=== PATIENT | male | born 1980 | race Caucasian/White ===

== ENCOUNTER 2021-07-06 14:53 | Emergency (ER) | payer OTHER ==
[2021-07-06 15:13] VITALS: BP 147/97; TEMP 98.7
[2021-07-06 15:23] VITALS: RESP 18
[2021-07-06] MEDS ORDERED: ONDANSETRON 4 MG/2 ML VIAL IVP STA (15:41)
[2021-07-06] MEDS ORDERED: SODIUM CHLORIDE 0.9% 50 ML IVPB ONE (16:00)
--- NOTE | 2021-07-06 16:07 | ED ---
General Adult HPI - General Chief complaint: Nausea/Vomiting/Diarrhea Stated complaint: Covid+, nausea Time Seen by Provider: 07/06/21 15:33 Source: patient, RN notes reviewed Mode of arrival: ambulatory Limitations: no limitations - History of Present Illness Initial comments: Patient is a 41-year-old male that presents to emergency department complaining of nausea. He notes he tested positive for Covid on Wednesday symptoms began on . She noted that he had questionable monoclonal antibody and wanted to undergo the IV infusion. He was otherwise a healthy well-appearing 41-year-old male in no apparent distress or pain. He denied any chest pain shortness of breath headache nausea vomiting diarrhea constipation fever fatigue chills. - Related Data Allergies Allergy/AdvReac Type Severity Reaction Status Date / Time No Known Allergies Allergy Verified 07/06/21 15:07 Review of Systems ROS Statement: Those systems with pertinent positive or pertinent negative responses have been documented in the HPI. ROS Other: All systems not noted in ROS Statement are negative. Past Medical History Past Medical History: No Reported History History of Any Multi-Drug Resistant Organisms: None Reported Past Surgical History: Cholecystectomy Past Psychological History: Anxiety Smoking Status: Never smoker Past Alcohol Use History: None Reported Past Drug Use History: Marijuana General Exam Limitations: no limitations General appearance: alert, in no apparent distress, obese Head exam: Present: atraumatic, normocephalic, normal inspection Eye exam: Present: normal appearance, PERRL, EOMI. Absent: scleral icterus, conjunctival injection, periorbital swelling ENT exam: Present: normal exam, mucous membranes moist Neck exam: Present: normal inspection Respiratory exam: Present: normal lung sounds bilaterally. Absent: respiratory distress, wheezes, rales, rhonchi, stridor Cardiovascular Exam: Present: regular rate, normal rhythm, normal heart sounds. Absent: systolic murmur, diastolic murmur, rubs, gallop, clicks Extremities exam: Present: normal inspection, full ROM, normal capillary refill. Absent: tenderness, pedal edema, joint swelling, calf tenderness Neurological exam: Present: alert, oriented X3 Psychiatric exam: Present: normal affect, normal mood Skin exam: Present: warm, dry, intact, normal color. Absent: rash Course Vital Signs 07/06/21 07/06/21 07/06/21 15:07 15:19 16:35 Temperature 98.7 F Pulse Rate 93 76 Respiratory 20 18 18 Rate Blood Pressure 147/97 O2 Sat by Pulse 96 97 Oximetry Medical Decision Making - Medical Decision Making 41-year-old male Covid-positive on Wednesday requesting monoclonal antibodies. Covid test, chest x-ray, monoclonal antibodies ordered. Covid positive. Patient was to undergo monoclonal antibody infusion at this time. Case discussed with Dr. Brink, patient discharge home after monoclonal antibody infusion. - Lab Data Lab Results 07/06/21 Range/Units 16:35 Coronavirus (PCR) Detected A (Not Detectd) Disposition Clinical Impression: COVID Disposition: HOME SELF-CARE Condition: Stable Instructions (If sedation given, give patient instructions): Coronavirus Disease 2019 (COVID-19) Additional Instructions: Please return to the Emergency Department if symptoms worsen or any other concerns. Is patient prescribed a controlled substance at d/c from ED?: No Referrals: None,Stated [Primary Care Provider] - 1-2 days Time of Disposition: 17:05
[2021-07-06] MEDS ORDERED: CASIRIVIMAB/IMDEVIMAB (EUA) 1,200 MG in SODIUM CHLORIDE 0.9% 100 ML IVPB ONE (16:30)
[2021-07-06 16:36] VITALS: PULSE 76
--- NOTE | 2021-07-06 17:26 | XR ---
EXAMINATION TYPE: XR chest 2V DATE OF EXAM: 07/06/2021 COMPARISON: 10/16/2010 HISTORY: Chest pain TECHNIQUE: FINDINGS: Heart and mediastinum are normal. Lungs are clear. Diaphragm is normal. Bony thorax appears normal. IMPRESSION: Normal chest.
== END 2021-07-06 18:00 | disposition home or self-care (01) ==
LOC: EC 14:53
DX: U07.1 COVID-19 (principal); E66.9 Obesity, unspecified; F12.90 Cannabis use, unspecified, uncomplicated; Z68.42 Body mass index [BMI] 45.0-49.9, adult
CPT/HCPCS: 87635; 71046; 99283; 96365; 96375; J2405; Q0243

== ENCOUNTER → 2024-06-02 | Outpatient (CLI) | payer OTHER ==
[2024-06-02 16:04] LABS: ALT 35 U/L (10-49); AST 31 U/L (14-35); Albumin 4.6 g/dL (3.8-4.9); Alkaline Phosphatase 78 U/L (41-126); Blood Urea Nitrogen 18.9 mg/dL (9.0-27.0); Calcium 9.3 mg/dL (8.7-10.3); Carbon Dioxide 23.3 mmol/L (21.6-31.8); Chloride 106 mmol/L (96-109); Chol/HDL Ratio 2.99 Ratio; Glucose 91 mg/dL (70-110); Potassium 4.6 mmol/L (3.5-5.5); Rheumatoid Factor, Qnt <15 IU/mL (0-15); Sodium 141 mmol/L (135-145); T4, Free (Free Thyroxine) 1.48 ng/dL (0.80-1.80); Total Bilirubin 0.8 mg/dL (0.3-1.2); Total Protein 6.6 g/dL (6.2-8.2); VLDL Calculation 8.24 mg/dL (5.00-40.00)
[2024-06-02 16:38] LABS: Basophils # (A) 0.03 X 10*3/uL (0.00-0.10); Basophils % (A) 0.4 %; Eosinophils % (A) 1.3 %; HCT 43.8 % (39.6-50.0); HGB 14.8 g/dL (13.0-17.0); Lymphocytes # (A) 1.89 X 10*3/uL (0.90-5.00); Lymphocytes % (A) 24.3 %; MCH 30.8 pg (27.0-32.0); MCHC 33.8 g/dL (32.0-37.0); MCV 91.1 FL (80.0-97.0); Mean Platelet Volume 10.6 FL (9.5-12.2); Monocytes # (A) 0.44 X 10*3/uL (0.20-1.00); Monocytes % (A) 5.6 %; NRBC Per 100 WBC 0 X 10*3/uL (0.00-0.01); Neutrophils # (A) 5.31 X 10*3/uL (1.80-7.70); Neutrophils % (A) 68.1 %; Platelet Count 243 X 10*3/uL (140-440); RBC 4.81 X 10*6/uL (4.40-5.60); RDW 12.3 % (11.5-14.5); WBC 7.79 X 10*3/uL (4.50-10.00)
[2024-06-03 05:25] LABS: Anti-DNA, DS unit <1.0 IU/mL; DNA Double-Stranded Negative (Negative)
[2024-06-06 16:48] LABS: Cyclic Citrull Pep IgG Unit <1.5 U/mL (<=3.9); Cyclic Citrullinated Pep IgG Negative
== END | disposition home or self-care (01) ==
LOC: LABWHC1 11:36
PROVIDERS: ATTEND Nurse Practitioner Family
DX: Z00.01 Encounter for general adult medical examination with abnormal findings (principal); E55.9 Vitamin D deficiency, unspecified; M25.50 Pain in unspecified joint
CPT/HCPCS: 36415; 80053; 80061; 82306; 83036; 84402; 84403; 84439; 84443; 85025; 86038; 86200; 86225; 86431